=== PATIENT | female | born 1990 | race Caucasian/White ===

== ENCOUNTER 2016-06-07 20:13 | Emergency (ER) | payer MEDICAID ==
[2016-06-07 20:28] VITALS: BP 128/90; PULSE 60; RESP 18; TEMP 98.6; O2SAT 96
[2016-06-07] MEDS ORDERED: DOXYCYCLINE 100 MG PREPACK#2 BTL TAKEHOME ONE (22:01)
--- NOTE | 2016-06-07 22:09 | UCPHY ---
H & P Time Seen by Provider: 06/07/16 20:45 Patient Type: New HPI/ROS: This patient reports uterine pain/pelvic pain, spotting and foul smell to discharge. Her recent history is notable [facility] [place] She was negative for STDs prior to placement. She reports minimal discomfort during placement and was doing well until last to 3 days when she developed increasing pain which is currently 8/10. She has minimal improvement from ibuprofen and notes no other exacerbating or alleviating factors. She tried [id number] medication for potential yeast infection without change in symptoms and came in for evaluation. ROS: No fevers. No other constitutional symptoms. HEENT: No complaints pulmonary: No complaints cardiovascular: No lightheadedness GI: No nausea vomiting. Normal appetite. : No dysuria. Last menstrual period was normal timing. 10 point ROS is otherwise negative. Past Medical/Surgical History: No previous STDs Social History: Monogamous Smoking Status: Never smoked Physical Exam: General Appearance: Alert, no distress. Eyes: Pupils equal and round no pallor or injection. ENT, Mouth: Mucous membranes moist. Respiratory: No respiratory distress Cardiovascular: Brisk capillary refill throughout Gastrointestinal: Soft with mild suprapubic tenderness in the uterine region. No guarding or rebound. Pelvic exam: External genitalia is normal with no lesions. No overt vaginal discharge. On speculum exam the cervix appears healthy an IUD is in place is evidence by strings with minimal serous/bloody discharge but no significant purulence is appreciated. On bimanual exam is no significant cervical motion tenderness. There is mild uterine tenderness Neurological: Alert with no focal deficits Skin: Warm and dry, no rashes. Extremities are symmetrical, full range of motion. Psychiatric: Mood and affect normal DIFFERENTIAL DIAGNOSIS: After history and physical exam differential diagnosis was considered for IUD related endometritis, id related pain/menses, doubt STD Constitutional: Initial Vital Signs Temperature (C) 37 C 06/07/16 20:26 Heart Rate 60 06/07/16 20:26 Respiratory Rate 18 06/07/16 20:26 Blood Pressure 128/90 H 06/07/16 20:26 O2 Sat (%) 96 06/07/16 20:26 O2 Delivery Mode Room Air Allergies/Adverse Reactions: amoxicillin Allergy (Verified 06/07/16 20:25) Home Medications: Medication Instructions Recorded Doxycycline Hyclate 100 mg PO BID #20 capsule 06/07/16 MDM/Departure - MDM Medications Given: Discontinued Medications Doxycycline Hyclate (Vibramycin 100 Mg Prepack#2) 1 btl TAKEHOME EDNOW ONE Stop: 06/07/16 22:02 Last Admin: 06/07/16 22:14 Dose: 1 btl ED Course/Re-evaluation: GC, chlamydia, vaginal culture and wet mount obtained. Wet mount is negative. Discuss the option of removing the IUD but patient prefers to keep this in place. Given minimal findings on exam with no fever or purulent discharge think is reasonable to treat empirically with doxycycline for potential ID related endometritis. Counseled patient regarding this. She understands the need to follow up with [facility] and[facility]or [facility] for any ongoing symptoms are not improved with treatment plan and need to go the emergency department for any worsening despite the treatment plan. - Depart Disposition: Home, Routine, Self-Care Clinical Impression: Infection associated with intrauterine device (IUD) Clinical Impression: (Ruled Out): IUD complication Instructions: Doxycycline (By mouth) Additional Instructions: Diagnosis: IUD related infection Plan: Doxycycline antibiotic Ibuprofen-600 mg for 6 hours and Tylenol in addition if needed Your symptoms should gradually improve over the next 3-4 days. If you're not improving, [facility] or with the OBGYN physician listed below. Go to the emergency department for any significant worsening despite the treatment plan. Prescriptions: Doxycycline Hyclate 100 mg PO BID #20 capsule Referrals: NONE *PRIMARY CARE P,. [Primary Care Provider] - As per Instructions Dee Dee Pandey DO [Doctor of Osteopathy] - As per Instructions - PQRS PQRS Measurement: NA
[2016-06-08 13:59] LABS: EXTRA TUBES TO HOLD EXTRA TUBES ON FILE
[2016-06-09 11:45] LABS: FOLLOW UP TEST COMPLETE
[2016-06-09 13:04] LABS: CHLAMYDIA AMPLIFICATION GENPRB NEGATIVE (NEGATIVE)
== END 2016-06-07 22:18 | disposition home or self-care (01) ==
LOC: CED 20:13
DX: T83.69XA Infection and inflammatory reaction due to other prosthetic device, implant and graft in genital tract, initial encounter (principal)
CPT/HCPCS: 87210-PO; 99203-PO; G0463-PO